=== PATIENT | male | born 1990 | race Caucasian/White ===

== ENCOUNTER 2021-05-30 02:26 | Emergency (ER) | payer OTHER ==
[~2021-05-30] VITALS: Ht 175.3 cm; Wt 76.2 kg
[~2021-05-30 02:26] MED LIST: CEPH250A PO; HYDACE5 PO; IBUP600 PO; Norco 5-325 Ta1 EACH PO; Ultram50 MG PO; Veetids 500500 MG PO; Zantac150 MG PO
[2021-05-30] MEDS ORDERED: SULTRIDS PO (05:36)
== END 2021-05-30 05:50 | disposition home or self-care (01) ==
LOC: ER 02:26
DX: L03.114 Cellulitis of left upper limb (principal); F17.210 Nicotine dependence, cigarettes, uncomplicated; Z88.5 Allergy status to narcotic agent
CPT/HCPCS: 99283; A9270

== ENCOUNTER 2022-03-10 05:09 | Emergency (ER) | payer OTHER ==
[~2022-03-10] VITALS: Ht 172.7 cm; Wt 79.4 kg
[~2022-03-10 05:09] MED LIST changes: +SULTRIDS PO
== END 2022-03-10 07:02 | disposition home or self-care (01) ==
LOC: ER 05:09
DX: U07.1 COVID-19 (principal); F17.210 Nicotine dependence, cigarettes, uncomplicated; Z88.5 Allergy status to narcotic agent
CPT/HCPCS: 99284

== ENCOUNTER 2024-02-07 18:11 | Emergency (ER) | payer OTHER ==
[~2024-02-07] VITALS: Ht 167.6 cm; Wt 74.8 kg
[2024-02-07 18:21] VITALS: BP 158/93
[2024-02-07] MEDS ORDERED: NAPROXEN500 MG PO (18:47)
== END 2024-02-07 18:54 | disposition home or self-care (01) ==
LOC: ER 18:11
DX: R04.2 Hemoptysis (principal); F17.210 Nicotine dependence, cigarettes, uncomplicated; Z88.5 Allergy status to narcotic agent
CPT/HCPCS: 71046; 99283-25